=== PATIENT | female | born 1990 | race Caucasian/White ===

== ENCOUNTER 2018-05-19 09:48 | Emergency (ER) | payer OTHER ==
[~2018-05-19] VITALS: Ht 167.6 cm; Wt 99.8 kg
== END 2018-05-19 14:38 | disposition home or self-care (01) ==
LOC: ER 09:48
DX: K52.9 Noninfective gastroenteritis and colitis, unspecified (principal)

== ENCOUNTER 2018-10-25 07:10 | Outpatient (CLI) | payer OTHER | END 2018-10-25 07:24 | disposition home or self-care (01) | LOC: NUCLEAR 07:10 | DX: K21.9 Gastro-esophageal reflux disease without esophagitis (principal); K30 Functional dyspepsia | CPT/HCPCS: A9541; 78264 ==

== ENCOUNTER 2020-11-05 08:49 | Outpatient (CLI) | payer OTHER | END 2020-11-05 09:27 | disposition home or self-care (01) | LOC: SONOGRAMA 08:49 | PROVIDERS: ATTEND Pathology Anatomic Pathology & Clinical Pathology | DX: C75.0 Malignant neoplasm of parathyroid gland (principal) ==

== ENCOUNTER 2021-04-30 23:20 | Emergency (ER) | payer OTHER ==
[~2021-04-30] VITALS: Ht 167.6 cm; Wt 108.9 kg
[2021-05-01] MEDS ORDERED: NORFLEX100MG PO (02:39)
[2021-05-01] MEDS ORDERED: KETO10TA2 PO (02:39)
== END 2021-05-01 03:02 | disposition home or self-care (01) ==
LOC: ER 23:20
DX: R07.89 Other chest pain (principal)

== ENCOUNTER 2023-09-06 06:53 | Emergency (ER) | payer OTHER ==
[~2023-09-06] VITALS: Ht 167.6 cm; Wt 117.9 kg
[~2023-09-06 06:53] MED LIST: ACETAMINOPHEN650 M2; KETO10TA2 PO; NORFLEX100MG PO
[2023-09-06] MEDS ORDERED: VALSARTAN160 MG (07:39)
[2023-09-06] MEDS ORDERED: BISOPROLOL-HCT1 EACH (07:39)
[2023-09-06] MEDS ORDERED: KETOROLAC TROMETHAMINE 60 MG VIAL IM STA (08:16)
[2023-09-06] MEDS ORDERED: KETOROLAC TROMETHAMINE 60 MG VIAL IM ONE (08:19)
== END 2023-09-06 09:44 | disposition home or self-care (01) ==
LOC: ER 06:53
DX: M25.552 Pain in left hip (principal); I10 Essential (primary) hypertension

== ENCOUNTER 2023-10-17 07:23 | Outpatient (CLI) | payer OTHER ==
[~2023-10-17 07:23] MED LIST changes: +BISOPROLOL-HCT1 EACH; +DICLOFENAC POTA50 MG PO; +METHOCARBAMOL750 MG PO; +VALSARTAN160 MG
== END 2023-10-17 07:24 | disposition home or self-care (01) ==
LOC: MRI 07:23
PROVIDERS: ATTEND Physical Medicine & Rehabilitation
DX: M54.50 Low back pain, unspecified (principal)
CPT/HCPCS: 72148

== ENCOUNTER 2023-10-26 07:58 | Outpatient (CLI) | payer OTHER ==
[2023-10-27] MEDS ORDERED: GABAPENTIN300 M2 PO (10:53)
== END 2023-10-26 07:59 | disposition home or self-care (01) ==
LOC: SONOGRAMA 07:58
PROVIDERS: ATTEND Pathology Anatomic Pathology & Clinical Pathology
DX: D34 Benign neoplasm of thyroid gland (principal); E07.89 Other specified disorders of thyroid; E04.2 Nontoxic multinodular goiter

== ENCOUNTER 2024-11-22 12:26 | Outpatient (CLI) | payer OTHER ==
[~2024-11-22 12:26] MED LIST changes: +GABAPENTIN300 M2 PO
== END 2024-11-22 12:32 | disposition home or self-care (01) ==
LOC: MAMO-SONO 12:26
PROVIDERS: ATTEND Obstetrics & Gynecology
DX: N60.11 Diffuse cystic mastopathy of right breast (principal)